=== PATIENT | female | born 1990 | race Caucasian/White ===

== ENCOUNTER 2017-07-30 16:26 | Emergency (ER) | payer OTHER ==
[~2017-07-30] VITALS: Wt 129.3 kg
[~2017-07-30 16:26] MED LIST: BENADRYL25 MG PO; DAYPRO600 M1 PO; JANTOVEN1 MG PO; KENALOG0.1% TP; MEDROL DOSEPAK4 MG PO; MULTI VITAMINS1 TAB PO; ROBAXIN750 MG PO; VICODIN 500 MG-1 TAB PO
[2017-07-30] MEDS ORDERED: METHYLPRED-DP4 MG PO (16:38)
[2017-07-30] MEDS ORDERED: KENALOG 0.5% CR15 GM T (16:55)
== END 2017-07-30 16:57 | disposition home or self-care (01) ==
LOC: ED 16:26
DX: R21 Rash and other nonspecific skin eruption (principal); T38.0X5A Adverse effect of glucocorticoids and synthetic analogues, initial encounter; Y92.9 Unspecified place or not applicable

== ENCOUNTER 2017-09-23 22:10 | Emergency (ER) | payer OTHER ==
[~2017-09-23] VITALS: Ht 177.8 cm; Wt 127.0 kg
[~2017-09-23 22:10] MED LIST changes: +KENALOG 0.5% CR15 GM T; +METHYLPRED-DP4 MG PO
[2017-09-23] MEDS ORDERED: HYCODAN/HYDROMET5 ML PO (22:26)
[2017-09-23] MEDS ORDERED: ALBUTEROL2.5 MG/0.5 INH (22:26)
[2017-09-23] MEDS ORDERED: TESSALON PERLE100 M1 PO (22:26)
== END 2017-09-23 23:35 | disposition home or self-care (01) ==
LOC: ED 22:10
DX: R05 Cough (principal)

== ENCOUNTER 2018-08-02 14:02 | Emergency (ER) | payer OTHER ==
[~2018-08-02] VITALS: Ht 180.3 cm; Wt 127.0 kg
--- NOTE | ~2018-08-02 | EKG ---
[place], [place] ELECTROCARDIOGRAM REPORT NAME: CHEPE BENÍTEZ UNIT #: [id number] ROOM: DOCTOR: EPIPHANY DRAFT REPORT BIRTHDATE: [birth year] [facility] Test Date: 2018-08-02 Test Time: 14:10:32 Pat Name: CHEPE BENÍTEZ Department: ER Room: Gender: F Radiology Manager: Chelsie Wright : 1990 Requested By: TANA NEWMAN Order Number: [id number] Reading MD: Beni Feng MD Measurements Intervals [place] Rate: 86 P: 33 ME: 183 QRS: 8 QRSD: 91 T: -8 QT: 372 QTc: 445 Interpretive Statements Sinus rhythm Borderline repolarization abnormality Electronically Signed On 08-02-2018 19:20:13 PST by Beni Feng MD CM:EKGRPT:ELECTROCARDIOGRAM REPORT 1410 1920 TANA NEWMAN EPIPHANY DRAFT REPORT TANA NEWMAN
--- NOTE | ~2018-08-02 | EKG ---
[place], [place] ELECTROCARDIOGRAM REPORT NAME: CHEPE BENÍTEZ UNIT #: [id number] ROOM: DOCTOR: EPIPHANY DRAFT REPORT BIRTHDATE: [birth year] [facility] Test Date: 2018-08-02 Test Time: 17:28:44 Pat Name: CHEPE BENÍTEZ Department: ED Room: Gender: F Machine Icer: CLEO : 1990 Requested By: TANA NEWMAN Order Number: [id number] Reading MD: Beni Feng MD Measurements Intervals [place] Rate: 89 P: 21 KS: 177 QRS: -3 QRSD: 91 T: -14 QT: 379 QTc: 462 Interpretive Statements Sinus rhythm LVH by voltage Borderline T abnormalities, inferior leads No change from earlier ECG this date. Electronically Signed On 08-02-2018 19:23:10 PST by Beni Feng MD CM:EKGRPT:ELECTROCARDIOGRAM REPORT 22 TANA NEWMAN EPIPHANY DRAFT REPORT TANA NEWMAN
[~2018-08-02 14:02] MED LIST changes: +ALBUTEROL2.5 MG/0.5 INH; +HYCODAN/HYDROMET5 ML PO; +TESSALON PERLE100 M1 PO
[2018-08-02 14:57] LABS: BASO # 0.1 10*3/uL (0.0-0.1); BASO % 0.6 % (0.0-1.0); EOS # 0.1 10*3/uL (0.0-0.4); EOS % 1.4 % (1.0-4.0); HEMATOCRIT 41.6 % (37.0-47.0); LYMPH # 2.8 10*3/uL (1.3-4.4); MEAN CELL VOLUME 88.5 fl (81.0-99.0); MEAN CORPUSCULAR HGB 29.8 pg (27.0-31.0); MEAN CORPUSCULAR HGB CONC 33.7 g/dl (33.0-37.0); MEAN PLATELET VOLUME 8.7 fl (9.6-12.3); MONO # 0.5 10*3/uL (0.1-1.0); MONO % 5.4 % (3.0-9.0); NEUT # 6.2 10*3/uL (2.3-7.9); NEUT % 63.4 % (47.0-73.0); PLATELET COUNT AUTOMATED 211 10*3/uL (130-400); RED CELL DISTRI WIDTH 12.3 % (0-14.5); WHITE BLOOD COUNT 9.8 10*3/uL (4.8-10.8)
[2018-08-02 15:07] LABS: ACT PARTIAL THROMBO TIME 24.6 SECONDS (20.8-31.5); INTERNATIONAL NORM RATIO 0.9 (2.0-3.5)
[2018-08-02 15:15] LABS: ALBUMIN 3.9 gm/dl (3.1-4.5); ALKALINE PHOSPHATASE 100 U/L (45-117); BUN 16 mg/dl (7-24); CHLORIDE 101 mmol/L (98-107); CREATININE 0.71 mg/dL (0.55-1.02); POTASSIUM 3.5 mmol/L (3.5-5.1); SGOT/AST 20 IU/L (3-35); SGPT/ALT 30 U/L (12-78); SODIUM 136 mmol/L (136-145); TOTAL PROTEIN 7.9 gm/dL (6.4-8.2)
[2018-08-02 15:18] LABS: TROPONIN I < 0.015 ng/ml (<0.045)
== END 2018-08-02 18:16 | disposition home or self-care (01) ==
LOC: ED 14:02
PROVIDERS: Nurse Practitioner Family
DX: R07.9 Chest pain, unspecified (principal)

== ENCOUNTER 2018-11-01 17:13 | Emergency (ER) | payer SELFPAY ==
[2018-11-01 17:45] LABS: BASO # 0.1 10*3/uL (0.0-0.1); BASO % 0.4 % (0.0-1.0); EOS # 0.2 10*3/uL (0.0-0.4); EOS % 1.3 % (1.0-4.0); HEMATOCRIT 38.2 % (37.0-47.0); LYMPH # 3.2 10*3/uL (1.3-4.4); LYMPH % 27.5 % (27.0-41.0); MEAN CORPUSCULAR HGB 30.3 pg (27.0-31.0); MONO # 0.7 10*3/uL (0.1-1.0); MONO % 5.9 % (3.0-9.0); NEUT # 7.5 10*3/uL (2.3-7.9); NEUT % 64.6 % (47.0-73.0); PLATELET COUNT AUTOMATED 233 10*3/uL (130-400); RED BLOOD COUNT 4.29 10*6/uL (4.10-5.10); RED CELL DISTRI WIDTH 12.9 % (0-14.5); WHITE BLOOD COUNT 11.6 10*3/uL (4.8-10.8)
[2018-11-01 18:01] LABS: ALBUMIN 3.7 gm/dl (3.1-4.5); ALKALINE PHOSPHATASE 90 U/L (45-117); BUN 10 mg/dl (7-24); CHLORIDE 103 mmol/L (98-107); CREATININE 0.79 mg/dL (0.55-1.02); POTASSIUM 3.8 mmol/L (3.5-5.1); SGOT/AST 18 IU/L (3-35); SGPT/ALT 25 U/L (12-78); SODIUM 138 mmol/L (136-145); TOTAL PROTEIN 8.1 gm/dL (6.4-8.2)
[2018-11-01 18:03] LABS: B-hCG (QUALITATIVE) NEGATIVE (NEGATIVE)
== END 2018-11-01 19:15 | disposition home or self-care (01) ==
LOC: ED 17:13
PROVIDERS: Physician Assistant
DX: N92.0 Excessive and frequent menstruation with regular cycle (principal); R42 Dizziness and giddiness

== ENCOUNTER → 2021-07-04 | Outpatient (CLI) | payer BC | END | disposition home or self-care (01) | LOC: COVID19 15:16 | PROVIDERS: ATTEND Internal Medicine | DX: Z11.52 Encounter for screening for COVID-19 (principal) ==